=== PATIENT | female | born 1980 | race Caucasian/White ===

== ENCOUNTER → 2021-06-25 10:20 | Outpatient (CLI) | payer OTHER, SELFPAY ==
[2021-06-25 14:12] LABS: Alanine Aminotransferase 13 U/L (12-78); Albumin Level 4.2 g/dl (3.5-5.0); Albumin/Globulin Ratio 1.6 (1.1-1.8); Alkaline Phosphatase 62 U/L (38-126); Anion Gap 11.3 mEq/L (5-15); Aspartate Amino Transferase 24 U/L (14-36); Bilirubin,Total 0.4 mg/dl (0.2-1.3); Blood Urea Nitrogen 33 mg/dl (7-17); Carbon Dioxide 26 mmol/L (22.0-30.0); Chloride 102 mmol/L (98-107); Estimated Glomerular Filt Rate 31 ml/min (>60); GFR (African American) 38 ML/MIN (>60); Globulin 2.6 g/dL (1.3-3.2); Glucose 81 mg/dl (74-100); Potassium 5.3 mmoL/L (3.5-5.1); Sodium 134 mmol/L (136-145); Total Protein,Serum 6.8 g/dl (6.3-8.2)
== END ==
PROVIDERS: Visit Provider Nurse Practitioner Family
DX: I10 Essential (primary) hypertension (principal)
CPT/HCPCS: 36415; 80053

== ENCOUNTER → 2022-02-18 11:47 | Outpatient (CLI) | payer OTHER, SELFPAY ==
[2022-02-18 14:20] LABS: Alanine Aminotransferase 21 U/L (12-78); Albumin Level 4.3 g/dl (3.5-5.0); Alkaline Phosphatase 120 U/L (38-126); Aspartate Amino Transferase 33 U/L (14-36); Bilirubin,Direct 0.2 mg/dl (0.0-0.4); Bilirubin,Total 0.2 mg/dl (0.2-1.3); Bilirubin,Unconjugated 0.1 mg/dL (0.0-1.1); Total Protein,Serum 7.3 g/dl (6.3-8.2)
== END ==
PROVIDERS: PCP Nurse Practitioner Family; Visit Provider Internal Medicine Nephrology
DX: N18.30 Chronic kidney disease, stage 3 unspecified (principal)
CPT/HCPCS: 36415; 80076

== ENCOUNTER → 2022-07-27 08:57 | Outpatient (CLI) | payer OTHER, SELFPAY ==
--- NOTE | 2022-07-27 08:59 | CA_ITS ---
APPROVED REPORT EXAM: Comprehensive 2D, Doppler, and color-flow Echocardiogram Sales Performance Manager: Keyona Perry RT(R) Ht: 5 ft 7 in Wt: 170lbs BSA: 1.89 BP: 147/108 mmHg Indications: HTN, polycystic kidney disease, abn EKG, edema, smoking history 2D Dimensions LVOT 1.93 cm (M/F) 1.5-2.5 LA Volume 31.00 mL LA Volume Index 16.40 mL/m2 (M/F) 16-34 M-Mode Dimensions RVDd 2.90 cm (0.9-2.6) LA Diam 2.15 cm (1.9-4.0) LVDd 3.58 cm (3.5-5.7) Ao Diam 2.91 cm (2.0-3.7) LVDs 2.33 cm (3.5-5.7) IVSd 0.57 cm (0.6-1.1) PWd 0.75 cm (0.6-1.1) EF (Teich) 65.20% FS 34.90% EDV (Teich) 53.70 mL ESV (Teich) 18.70 mL LV Diastology E Decel Time 207.00 (160-240 msec) E/A Ratio 1.6 MED E' 9.80 (< 7 cm/sec) E'/MED E' Ratio 7.57 (>14) LAT E' 11.80 (<10 cm/sec) E/LAT E' Ratio 6.29 (>14) Mitral Valve MV E Max Jan. 74.00 (40-130 cm/s) MV A Velocity 47.00 (40-130 cm/s) E/A Ratio 1.58 MV Decel. Time 207.00 (160-240 ms) MV PHT 61.00 ms Left Ventricle Left atrium is mildly enlarged left ventricle normal size mild concentric left ventricular hypertrophy, estimated ejection fraction 55% with no regional wall motion abnormality, diastolic parameters are inconclusive. Right Ventricle Right atrium right ventricular mildly enlarged with normal contractility. Aortic Valve Aortic valve is minimally thickened and fibrosed there is no aortic stenosis, there is trace aortic insufficiency. Mitral Valve Mitral valve is grossly normal, there is trace mitral regurgitation. Tricuspid Valve Tricuspid valve grossly normal, there is trace tricuspid regurgitation. Pulmonic Valve Pulmonic valve is poorly visualized. Great Vessels Aortic root is normal size. Inferior vena cava is normal size with normal inspiratory collapse. Pericardium No significant pericardial effusion noted. Conclusion 1. Mild biatrial enlargement, normal left ventricular size, mild concentric left ventricular hypertrophy, estimated ejection fraction 55% with no regional wall motion abnormality, diastolic parameters are inconclusive. 2. Trace aortic, mitral and tricuspid regurgitation. 3. No significant pericardial effusion noted. 4. Inferior vena cava is normal size with normal inspiratory collapse. Electronically signed by : Wale Ruiz MD 07/28/2022 06:04:45
--- NOTE | 2022-07-27 08:59 | CA_ITS ---
FINAL REPORT TECHNIQUE: Grayscale, color Doppler and duplex Doppler ultrasound of the kidneys, aorta and renal arteries was performed. Multiple velocities were measured. CLINICAL HISTORY: HTN,CKD STAGE 3,POLYCYSTIC KIDNEYS FINDINGS: Aorta velocity: 68 cm/sec Right kidney: 16.0 cm. There is no hydronephrosis. Right intrarenal RI: .54 Right renal artery velocity: 155 cm/sec. Right RAR (Renal artery-Aortic Ratio): 2.3 Left Kidney: 14.3 cm. There is no hydronephrosis. Left intrarenal RI: .63 Left renal artery velocity: 116 cm/sec. Left RAR (Renal Artery-Aortic Ratio): 1.7 There are multiple bilateral renal cysts. IMPRESSION: No evidence of significant renal artery stenosis. Multiple bilateral renal cysts consistent with polycystic kidney disease. CT angiogram or postcontrast MR angiogram would be more sensitive for evaluation of possible renal artery stenosis. Reviewed, Interpreted and Dictated by Riley Llanos III, MD Transcribed by Flaca Valentine Authenticated and [facility]
== END ==
PROVIDERS: PCP Nurse Practitioner; Visit Provider Physician Assistant
DX: I10 Essential (primary) hypertension (principal); R94.31 Abnormal electrocardiogram [ECG] [EKG]
CPT/HCPCS: 93306; 93976

== ENCOUNTER → 2022-08-12 11:00 | Outpatient (CLI) | payer OTHER, SELFPAY ==
--- NOTE | 2022-08-12 11:05 | XR_ITS ---
FINAL REPORT CLINICAL HISTORY: cyst FINDINGS: RIGHT SHOULDER Three views demonstrate no acute fracture or dislocation. There are mild degenerative changes of the acromioclavicular and glenohumeral joints. The visualized bony structures are well aligned. No soft tissue abnormality is seen. IMPRESSION: No acute process. Reviewed, Interpreted and Dictated by Riley Llanos III, MD Transcribed by Candi Umanzor Authenticated and [facility]
== END ==
PROVIDERS: PCP Nurse Practitioner; Visit Provider Orthopaedic Surgery
DX: M67.412 Ganglion, left shoulder (principal)
CPT/HCPCS: 73030

== ENCOUNTER → 2022-08-19 13:04 | Outpatient (CLI) | payer OTHER, SELFPAY ==
--- NOTE | 2022-08-19 13:04 | MR_ITS ---
FINAL REPORT CLINICAL HISTORY: shoulder mass. abnormal x-ray of shoulder. put marker on spot. COMPARISON: none FINDINGS: Multiplanar MR imaging of the left shoulder was performed without contrast. The tendons of the rotator cuff are intact without evidence of rotator cuff tear. There is mild AC joint degenerative change. There is fluid collection superior to the AC joint measuring 7 mm likely representing ganglion cyst. The glenoid labrum is intact. The long head of the biceps tendon is intact. No significant glenohumeral joint effusion is seen. There is no evidence of fracture or dislocation. The musculature is intact. There is no evidence of soft tissue mass. IMPRESSION: No evidence of rotator cuff tear or labral tear. Fluid collection as described, likely ganglion cyst. Reviewed, Interpreted and Dictated by Riley Llanos III, MD Transcribed by Monika Quintero Authenticated and [facility]
== END ==
PROVIDERS: PCP Nurse Practitioner; Visit Provider Orthopaedic Surgery
DX: R22.32 Localized swelling, mass and lump, left upper limb (principal)
CPT/HCPCS: 73221